=== PATIENT | female | born 1940 | race Caucasian/White ===

== ENCOUNTER → 2016-11-15 | Outpatient (CLI) | payer MEDICARE, OTHER ==
[~2016-11-15] MED LIST: CATHETER FLUSH 10 ML SYR IV PRN
--- OUTSIDE RECORDS SUMMARY | 2016-11-15 09:19 | XMS REPORT | Continuity of Care Document ---
Author Author [facility] Organization [facility] Address Unknown Phone Unavailable Allergies Medications Problems Date Dx Coded Attending Type Code Diagnosis Diagnosed By 04/03/2015 BRANT ELLIOTT MD Ot 780.2 04/03/2015 BRANT ELLIOTT MD Ot 785.1 04/07/2015 BRANT ELLIOTT MD Ot 780.2 04/07/2015 BRANT ELILOTT MD Ot 785.1 04/07/2015 BRANT ELLIOTT MD Ot 780.2 04/07/2015 BRANT ELLIOTT MD Ot 785.1 04/27/2015 BRANT ELLIOTT MD Ot 780.2 04/27/2015 BRANT ELLIOTT MD Ot 785.1 06/28/2015 BRANT ELLIOTT MD Ot V45.82 06/28/2015 BRANT ELLIOTT MD Ot V57.89 06/29/2015 BRANT ELLIOTT MD Ot 780.2 06/29/2015 BRANT ELLIOTT MD Ot 785.1 06/29/2015 BRANT ELLIOTT MD Ot R00.2 06/29/2015 BRANT ELLIOTT MD Ot R55 07/08/2015 BRANT ELLIOTT MD Ot V45.82 07/08/2015 BRANT ELLIOTT MD Ot V57.89 07/11/2015 BRANT ELLIOTT MD Ot V45.82 07/11/2015 BRANT ELLIOTT MD Ot V57.89 07/11/2015 BRANT ELLIOTT MD Ot V45.82 07/11/2015 BRANT ELLIOTT MD Ot V57.89 07/11/2015 BRANT ELLIOTT MD Ot V45.82 07/11/2015 BRANT ELLIOTT MD Ot V57.89 07/12/2015 BRANT ELLIOTT MD Ot Z48.812 07/12/2015 BRANT ELLIOTT MD Ot Z95.5 07/14/2015 BRANT ELLIOTT MD Ot V45.82 07/14/2015 BRANT ELLIOTT MD Ot V57.89 Procedures Results Encounters ACCT No. Visit Date/Time Discharge Status Pt. Type Provider Facility Loc./Unit Complaint [id number] 07/12/2015 11:46:00 2014 13:00:00 DIS Outpatient BRANT ELLIOTT MD [facility] CR [id number] 07/05/2015 11:41:00 2014 00:01:00 DIS Outpatient BRANT ELLIOTT MD [facility] CR [id number] 06/30/2015 11:00:00 2014 23:59:59 CLS Preadmit BRANT ELLIOTT MD [facility] CARD [id number] 03/31/2015 10:43:00 2014 00:01:00 DIS Outpatient BRANT ELLIOTT MD [facility] CARD
--- NOTE | 2016-11-15 12:36 | Diagnostic Imaging Report ---
EXAMINATION: HIDA with EF measurements Indication: Abdominal pain TECHNIQUE: After the intravenous administration of 5.4 mCi of Tc 99m Choletec, imaging over the abdomen was obtained. This was followed by administration of Ensure orally to stimulate intrinsic CCK secretion, followed by continued imaging with ejection fraction measured. FINDINGS: There is homogeneous uptake in the liver with prompt bile duct and gallbladder filling seen. Bowel activity is seen at 65 minutes. Based on further imaging and gallbladder area of interest activity measurements after the administration of Ensure, the gallbladder ejection fraction is estimated at 49%. IMPRESSION: 1. Normal hepatobiliary uptake and Gallbladder filling. 2. Borderline gallbladder ejection fraction. Correlate clinically. Dictated by: Dictated on workstation # [id number]
== END ==
LOC: CARD 09:15
PROVIDERS: ATTEND Surgery
DX: R10.11 Right upper quadrant pain (principal)
CPT/HCPCS: 78227